=== PATIENT | female | born 1980 | race African-American/Black ===

== ENCOUNTER 2019-03-27 03:21 | Emergency (ER) | payer MEDICAID ==
[~2019-03-27] VITALS: Ht 170.2 cm; Wt 70.0 kg
[2019-03-27 03:23] VITALS: BP 130/90
[2019-03-27] MEDS ORDERED: KETOROLAC 30 MG/1 ML IM ONE (03:30)
[2019-03-27] MEDS ORDERED: HYDROcodone/APAP 5/325 TABLET PO ONE (03:30)
[2019-03-27] MEDS ORDERED: KETOROLAC 30 MG/1 ML ONE (03:51)
[2019-03-27] MEDS ORDERED: HYDROcodone/APAP 5/325 TABLET ONE (03:52)
--- NOTE | 2019-03-27 03:57 | NUR ---
PT MEDICATED PER [facility] FOR PAIN. PT TOLERTAED WELL.
--- NOTE | 2019-03-27 03:57 | NUR ---
PT BIB [facility] FOR "THE PAINS". PT COMPLAINS OF RIGHT FOOT PAIN AND SWELLING SINCE GETTING OFF THE BUS ON FRIDAY FROM [place]. DENIES TRAUMA. MILD SWELLING NOTED. PT SPENDING MOST OF HER TIME SPEAKING LOUDLY ON CELL PHONE. PT STATES SHE CAN AMBULATE INDEPENDENTLY. PT'S AOX4. RESPS EVEN AND UNLABORED.
[2019-03-27] MEDS ORDERED: PLEASE ENTER ALLERGIES MC SCH (04:00)
[2019-03-27 04:04] LABS: BASOPHILS # (AUTO) 0.04 x10^3/uL (0-0.1); BASOPHILS % (AUTO) 0 % (0-1); EOSINOPHILS # (AUTO) 0.06 x10^3/uL (0-0.4); EOSINOPHILS % (AUTO) 1 % (1-7); LYMPHOCYTES # (AUTO) 2.79 x10^3/uL (1-3.4); LYMPHOCYTES % (AUTO) 29 % (22-44); MD NO; MEAN CORPUSCULAR HGB CONC 32.8 g/dL (32.4-35.8); MEAN CORPUSCULAR VOLUME 94.6 fL (80-100); MEAN PLATELET VOLUME 7.3 fL (7.4-10.4); MONOCYTES # (AUTO) 0.56 x10^3/uL (0.2-0.8); MONOCYTES % (AUTO) 6 % (2-9); NEUTROPHILS # (AUTO) 6.25 x10^3/uL (1.8-6.8); NEUTROPHILS % (AUTO) 64 % (42-75); PLATELET COUNT 307 x10^3/uL (130-400); RED BLOOD COUNT 4.68 x10^6/uL (3.82-5.3); RED CELL DISTRIBUTION WIDTH 13.1 % (9.6-15.2)
--- NOTE | 2019-03-27 04:07 | NUR ---
pt ambulates with steady gait to front rn station requesting her boyfriend be found because he is not answering his phone. boyfriend was found asleep in lobby requesting to be left alone.
--- NOTE | 2019-03-27 04:10 | NUR ---
pt ambulates to lobby to retrieve her boyfriend. both ambulate back to room with steady gait.
[2019-03-27 04:15] LABS: INTERNATIONAL NORMALIZED RATIO 0.94 (0.93-1.1); PROTHROMBIN TIME 9.9 Seconds (9.6-11.5)
[2019-03-27 04:18] LABS: ALBUMIN 3.9 g/dL (3.4-5.0); ANION GAP 12 mmol/L (5-15); CALCIUM 8.3 mg/dL (8.5-10.1); CHLORIDE 110 mmol/L (98-107); CREATININE 0.94 mg/dL (0.55-1.02)
--- NOTE | 2019-03-27 04:33 | NUR ---
PT CURRENTLY IN [place]
== END 2019-03-27 05:42 | disposition home or self-care (01) ==
LOC: ED 04:16
DX: M79.661 Pain in right lower leg (principal); M25.561 Pain in right knee; I10 Essential (primary) hypertension
CPT/HCPCS: 36415; 80048; 82040; 84703; 85025; 85610; 85730; 93970; 96372; 99284; J1885